=== PATIENT | female | born 1995 | race Hispanic/Latino ===

== ENCOUNTER 2024-07-01 12:07 | Emergency (ER) | payer OTHER ==
[~2024-07-01] VITALS: Ht 175.3 cm; Wt 81.6 kg
[2024-07-01 12:15] VITALS: PULSE 110; RESP 18; TEMP 98.5; O2SAT 99
== END 2024-07-01 13:45 | disposition home or self-care (01) ==
LOC: FSED 12:21
DX: R09.1 Pleurisy (principal); R07.89 Other chest pain
CPT/HCPCS: 93005; 99283